=== PATIENT | female | born 1995 | race African-American/Black ===

== ENCOUNTER 2016-06-06 21:11 | Emergency (ER) | payer BC ==
[~2016-06-06] VITALS: Ht 160 cm; Wt 70.3 kg
[2016-06-06 21:15] VITALS: TEMP 36.8; Ht 160 cm; Wt 70.3 kg
[2016-06-06] MEDS ORDERED: SEPTRA DS HOME PACK 1 EA VIAL PO ONE (22:00)
--- NOTE | 2016-06-06 22:05 | EMERGENCY ROOM VISIT NOTE ---
ED Visit Note First contact with patient: 21:46 CHIEF COMPLAINT: Bump on groin HISTORY OF PRESENT ILLNESS: This 20-year-old female patient presents to the emergency department ambulatory complaining of drainage from a bump on the left side of her groin. The patient states that she first noticed pain in the left side of her groin 2 days ago. She states that today, she was going to the bathroom when she felt a pop and a large amount of pus drained from the bump. She denies any history of abscesses. She reports that there has been some drainage since then. She rates her current discomfort a 0/10. She is not a diabetic. She denies any fevers/chills. The patient also reports that she has had intermittent headaches over the past few months. She states that the headaches tend to occur after she eats something salty. They typically resolve with Excedrin Migraine. She denies any pain at this time. She denies any associated numbness, weakness, blurred vision or slurred speech. She does not have a history of migraines. REVIEW OF SYSTEMS: A review of systems was performed with positives and pertinent negatives listed in the history of present illness. All other systems were reviewed and are negative. ALLERGIES: No known drug allergies MEDICATIONS: No chronic medications PMH: No significant past medical history. SOCIAL HISTORY: The patient is a [employer] student and lives with roommates. PHYSICAL EXAM: Vital Signs: Reviewed Nurse's notes, vital signs stable. GENERAL: This is a 20-year-old female, no acute distress, non toxic in appearance, well-developed well-nourished. SKIN: There is an erythematous indurated area posterior to the left labia which measures about 1.5 cm in diameter. It is actively draining. There is minimal surrounding cellulitis. HEENT: Normocephalic. PERRLA. EOMI. Nares patent. Mucous membranes moist. Neck is supple without nuchal rigidity. HEART: Regular rate and rhythm without murmurs gallops or rubs. LUNGS: Clear to auscultation bilaterally without wheezes, rales or rhonchi. MUSCULOSKELETAL: Full range of motion of all extremities. Strength 5/5 throughout. NEURO: Patient was alert and oriented to person place and time. Normal sensation to light and sharp touch. Deep tendon reflexes 2+ throughout. No focal neurological deficits. EMERGENCY DEPARTMENT COURSE: I examined the patient. The patient has an abscess which is actively draining. A small amount of additional pus was expressed. No further I&D will be necessary at this time. Conservative measures were discussed. The patient will be placed on Bactrim. She will follow-up with [facility] as needed. The patient also reports some intermittent headaches. They are not the worst headaches of her life. She does not have a headache at this time. There have been no concerning neurological symptoms. The patient will likely need further workup for these headaches, but I recommended that she may follow-up with [facility] for this. She should return if she has a severe headache or any neuro symptoms. She was agreeable to this. She verbalized understanding of my assessment and treatment plan and was discharged home in good condition. DIAGNOSIS: Abscess of the groin Current/Historical Medications Scheduled Sulfa/Trimethoprim (Bactrim Ds 800MG/160MG), 1 TAB PO BID Allergies Coded Allergies: No Known Allergies (Unverified , 06/06/16) Vital Signs Date Time Temp Pulse Resp B/P Pulse Ox O2 Delivery O2 Flow Rate FiO2 06/06/16 22:35 87 16 131/86 95 06/06/16 21:15 36.8 132 18 123/81 98 Room Air Medications Administered Medications (Trade) Dose Ordered Sig/Veronica Route Start Time Stop Time Status Last Admin Dose Admin Trimethoprim/ Sulfamethoxazole (Sulfameth/ Trimeth Ds 800/ 160MG Home Pack) 1 homepack UD ONCE PO 06/06/16 22:00 06/06/16 22:03 DC 06/06/16 22:33 1 HOMEPACK Departure Information Impression Primary Impression: Abscess of left groin Dispostion Home / Self-Care Condition GOOD Prescriptions Sulfa/Trimethoprim (Bactrim Ds 800MG/160MG) Tab 1 TAB PO BID for 6 Days, #12 TAB Prov: Shana Estrada, ESTELLA 06/06/16 Referrals No Doctor, Assigned (PCP) Patient Instructions My [facility] Additional Instructions You were seen in the Emergency Department for an abscess of your groin. You were prescribed Bactrim to be taken twice daily for a total of 7 days. Both of these medications are antibiotics. Stop these medications and contact a medical provider if you were to develop any significant adverse side effects including: wheezing, shortness of breath, passing out, vomiting, or a diffuse rash. Always take antibiotics as directed and COMPLETE the ENTIRE course regardless of the improvement of your symptoms. Apply warm compresses to the area frequently for the next 2-3 days to help facilitate further drainage of pus. For pain control, you can use the following [id number] medicines (if >12 yo): - Regular strength (325mg/tab) Tylenol (acetaminophen) 2 tabs every 4-6 hours as needed. Do not exceed 12 tablets in a 24 hour period. Avoid taking more than 4 grams (4000 mg) of Tylenol per day. This includes any other sources of acetaminophen you may take on a regular basis. - Regular strength (200 mg/tab) Advil (ibuprofen) 1-2 tabs every 4-6 hours as needed. Do not exceed a dose of 3200 mg per day. Follow-up with [facility] for your intermittent headaches. You may need an MRI or other workup for possible migraines. If you develop a persistent headache, the worst headache of your life, numbness/weakness, vision or speech changes, or any other new/concerning symptoms with your headaches, you should return to the emergency Department immediately. Return to the emergency department if you have worsening swelling, increasing drainage, fevers or any other new/concerning symptoms.
[2016-06-06] MEDS ORDERED: SULF800T23 PO (22:21)
[2016-06-06 22:35] VITALS: BP 131/86; PULSE 87; O2SAT 95
== END 2016-06-06 22:37 | disposition home or self-care (01) ==
LOC: C.EDB 21:13 → C.EDC 22:37
DX: L02.211 Cutaneous abscess of abdominal wall (principal)